=== PATIENT | female | born 2000 | race Caucasian/White ===

== ENCOUNTER 2023-08-23 03:31 | Emergency (ER) | payer OTHER, SELFPAY ==
[2023-08-23 03:34] VITALS: BP 136/86; PULSE 90; RESP 16; TEMP 36.4; O2SAT 98; BMI 42.9
--- NOTE | 2023-08-23 03:41 | XR_ITS ---
[facility] [place] [id number] Patient Name: GAY BECERRIL MRN: [id number] date: 2000 Sex: F Assigned Patient Location: ER Current Patient Location: ED.MAIN Accession/Order Number: [id number] Exam Date: 08/23/2023 03:48 Report Date: 08/23/2023 04:12 At the request of: IRENE MARKER Procedure: XR hand LT min 3V EXAM: XR hand LT min 3V HISTORY: Left hand injury. COMPARISON: None. TECHNIQUE: PA, oblique and lateral views of the left hand performed. FINDINGS: There is less than 0.2 cm ulnar minus variance. The bone mineralization is within normal limits. There is no fracture. The joint spaces are maintained. There are no significant degenerative/arthritic changes. There is no soft tissue abnormality. XR/XR hand LT min 3V IMPRESSION: There is no acute process. There is no fracture. Less than 0.2 cm ulnar minus variance. Electronically authenticated by: ISSA METCALF Date: 08/23/2023 04:12
--- NOTE | 2023-08-23 03:42 | ED.UPPEXIN1 ---
HPI - Extremity Injury (Upper) General Chief Complaint: Extremity Injury, Upper Stated Complaint: LT HAND INJURY/BWC Time Seen by Provider: 08/23/23 03:41 Source: patient Mode of arrival: walk-in Limitations: no limitations History of Present Illness HPI narrative: This 73-year-old female who is right-hand dominant presents for evaluation of a left hand injury. The patient works at [employer] and accidentally smacked her hand against a piece of molding while pulling a part out of another piece of mold. She complains of pain at the left 5th metacarpal. There is no wrist, forearm, elbow or shoulder pain. There is no numbness or tingling. There is no laceration or abrasion. Related Data Home Medications Medication Instructions Recorded Confirmed No Known Home Medications 08/23/23 08/23/23 Allergies Allergy/AdvReac Type Severity Reaction Status Date / Time No Known Drug Allergies Allergy Verified 08/23/23 03:38 Review of Systems ROS Status of ROS 10 or more systems reviewed and unremarkable except as noted in history and below PFSH [facility] Social History Smoking status: Never smoker Exam Narrative Exam Narrative: Nurses note and vital signs reviewed and patient is not hypoxic. General: Overweight adult female, no distress noted, left hand is on an ice pack GCS 15 Skin: Warm, dry, no pallor noted. There is no rash noted. Head: Normocephalic, atraumatic Eye: Normal conjunctiva, no drainage, EOMI. PERRL Cardiovascular: Regular Rate and Rhythm Respiratory: Patient is in no distress, no accessory muscle use, lungs are clear to auscultation, no wheezing, rales or rhonchi Musculoskeletal: Tenderness to left 5ht metatarsal, no ecchymosis, bony deformity, abrasion or laceration noted, pt is able to move all fingers, able to approximate thumb and all fingers, pulses are brisk, capillary refill is less than 2 seconds. Neurological: A&O x4, normal speech Psychiatric: Cooperative Constitutional Vital Signs, click to edit/add: Last Vital Signs Temp 97.5 F L 08/23/23 03:34 Pulse 90 08/23/23 03:34 Resp 16 08/23/23 03:34 BP 136/86 08/23/23 03:34 Pulse Ox 98 08/23/23 03:34 O2 Del Method Room Air 08/23/23 03:34 Course Vital Signs Vital signs: Vital Signs Temperature 97.5 F L 08/23/23 03:34 Pulse Rate 90 08/23/23 03:34 Respiratory Rate 16 08/23/23 03:34 Blood Pressure 136/86 08/23/23 03:34 Pulse Oximetry 98 08/23/23 03:34 Oxygen Delivery Method Room Air 08/23/23 03:34 Temperature 97.5 F L 08/23/23 03:34 Pulse Rate 90 08/23/23 03:34 Respiratory Rate 16 08/23/23 03:34 Blood Pressure 136/86 08/23/23 03:34 Pulse Oximetry 98 08/23/23 03:34 Oxygen Delivery Method Room Air 08/23/23 03:34 MDM - Extremity Injury (Upper) MDM Narrative Medical decision making narrative: This 23-year-old female who is right-hand dominant presents for evaluation of a left hand injury. The patient was pulling a stuck part out of a piece of molding when her hand was propelled forward and struck another piece of molding. She presents complaining of pain in the left 5th metacarpal. She is neurovascular intact. She is able to approximate thumb and all fingers. There is mild tenderness at the 5th metacarpal but no notable ecchymosis, swelling bony deformity or laceration or abrasion. X-ray of the hand is negative for acute findings. She was placed in an Anders wrap by myself and medicated with 6 mg of ibuprofen. She was discharged home to follow up with outpatient Workmen's Comp. Discharge Plan Discharge Chief Complaint: Extremity Injury, Upper Clinical Impression: Contusion of hand, left Time of Disposition Decision: 04:03 Condition: Good Prescriptions / Home Meds: No Action No Known Home Medications Instructions: Contusion in Adults (ED) Additional Instructions: Follow-up with workman's comp in 3-5 days as needed Stand Alone Forms: Portal Instructions Referrals: Physician,Non-Staff, MD [Primary Care Provider] - 1 week
[2023-08-23] MEDS: IBUPROFEN 600 MG TABLET PO (04:04)
== END 2023-08-23 04:30 | disposition home or self-care (01) ==
PROVIDERS: Emergency Provider Emergency Medicine
DX: S60.222A Contusion of left hand, initial encounter (principal); W22.8XXA Striking against or struck by other objects, initial encounter
CPT/HCPCS: 73130; 99283

== ENCOUNTER 2023-09-09 01:18 | Emergency (ER) | payer OTHER, SELFPAY ==
[2023-09-09 01:18] VITALS: BP 129/88; PULSE 86; RESP 16; TEMP 36.8; O2SAT 100; BMI 42.9
--- NOTE | 2023-09-09 01:25 | ED.ABDPAIN1 ---
HPI - Abdominal Pain General Chief Complaint: Abdominal Pain Stated Complaint: PAIN Time Seen by Provider: 09/09/23 01:20 Source: patient Mode of arrival: ambulance Limitations: no limitations History of Present Illness HPI narrative: patient presents complaining of right sided abdominal pain. states she has experienced similar pain on a couple of occasions over the past 2-3 weeks. Seen once by her PCP and once at [facility]. states pain started again tonight about 2 hours ago and she vomited once. States it remains unclear what is the cause of her pain. No fever. 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 (ICD-10) Social History Smoking status: Never smoker Exam Constitutional Vital Signs, click to edit/add: Last Vital Signs Temp 98.3 F 09/09/23 01:18 Pulse 86 09/09/23 01:18 Resp 16 09/09/23 01:18 BP 129/88 09/09/23 01:18 Pulse Ox 100 09/09/23 01:18 O2 Del Method Room Air 09/09/23 01:18 Common normals: no apparent distress, oriented x3, no limitations, healthy appearing, alert and well nourished Eye Common normals: EOMs intact bilaterally and conjunctivae normal Respiratory Common normals: normal respiratory effort, no retractions, no use of accessory muscles and clear to auscultation bilaterally Cardio Common normals: regular rate, regular rhythm, S1 normal heart sound and S2 normal heart sound GI Common normals: Normal to inspection, nondistended, normoactive bowel sounds present and soft to palpation Other: mild tenderness right mid abdomen . No guarding Extremity Common normals: normal to inspection and full ROM Neuro Common normals: oriented x3, CN's II-XII intact bilaterally, moves all extremities, no focal motor deficits and no sensory deficits noted Psych Appearance: grossly normal Course Vital Signs Vital signs: Vital Signs Temperature 98.3 F 09/09/23 01:18 Pulse Rate 86 09/09/23 01:18 Respiratory Rate 16 09/09/23 01:18 Blood Pressure 129/88 09/09/23 01:18 Pulse Oximetry 100 09/09/23 01:18 Oxygen Delivery Method Room Air 09/09/23 01:18 Temperature 98.3 F 09/09/23 01:18 Pulse Rate 86 09/09/23 01:18 Respiratory Rate 16 09/09/23 01:18 Blood Pressure 129/88 09/09/23 01:18 Pulse Oximetry 100 09/09/23 01:18 Oxygen Delivery Method Room Air 09/09/23 01:18 MDM - Abdominal Pain MDM Narrative Medical decision making narrative: patient presents with abdominal pain. mild tenderness. Seen at [facility] 08/03/23 for the same and CT abdomen neg. workup here neg. Patient is now feeling better and would like to go home. Discharged to follow up with her doctor Lab Data Labs: Lab Results 09/09/23 Range/Units 01:41 WBC 10.1 (4.0-11.0) 10^3/uL RBC 4.59 (4.20-5.40) 10^6/uL Hgb 13.6 (12.0-16.0) g/dL Hct 42.2 (36.0-48.0) % MCV 91.9 (81.0-99.0) fL MCH 29.6 (26.7-34.0) pg MCHC 32.2 (29.9-35.2) g/dL RDW 12.3 (11.0-15.0) % Plt Count 412 (150-450) 10^3/uL MPV 8.9 L (9.5-13.5) fL Neut % (Auto) 61.7 (43.0-75.0) % Lymph % (Auto) 31.1 (20.5-60.0) % Island % (Auto) 5.5 (1.7-12.0) % Eos % (Auto) 0.7 L (0.9-7.0) % Baso % (Auto) 0.5 (0.2-2.0) % Neut # (Auto) 6.2 (1.4-6.5) 10^3/uL Lymph # (Auto) 3.1 (1.2-3.8) 10^3/uL Island # (Auto) 0.6 (0.3-0.8) 10^3/uL Eos # (Auto) 0.1 (0.0-0.7) 10^3/uL Baso # (Auto) 0.1 (0.0-0.1) 10^3/uL Abs Immat Gran (auto) 0.05 H (0.00-0.03) 10^3/uL Imm/Tot Granulo (auto) 0.5 (0.0-0.5) % Discharge Plan Discharge Chief Complaint: Abdominal Pain Clinical Impression: Abdominal pain Patient Disposition: Home, Self-Care Prescriptions / Home Meds: No Action No Known Home Medications Instructions: Abdominal Pain (ED) Stand Alone Forms: Portal Instructions Referrals: Physician,Non-Staff, MD [Primary Care Provider] - 1 week
--- NOTE | 2023-09-09 01:29 | XR_ITS ---
The [address] [address] Patient Name: GAY BECERRIL MRN: [id number] date: 2000 Sex: F Assigned Patient Location: ER Current Patient Location: ER Accession/Order Number: [id number] Exam Date: 09/09/2023 01:45 Report Date: 09/09/2023 02:39 At the request of: BEVERLY CLEMENS Procedure: XR abdomen min 2V EXAM: XR abdomen min 2V HISTORY: abdominal pain COMPARISON: None. TECHNIQUE: 2 views of the abdomen were obtained. FINDINGS: There is a nonspecific bowel gas pattern without evidence of bowel obstruction. A supine view is suboptimal for evaluation of intraperitoneal free air though none is seen. No acute osseous abnormality is seen. The imaged lung bases are clear. XR/XR abdomen min 2V IMPRESSION: 1. Nonspecific bowel gas pattern without evidence of bowel obstruction. Electronically authenticated by: Daquan RUSSELL Date: 09/09/2023 02:39
[2023-09-09 01:50] LABS: Red Blood Count 4.59 10^6/uL (4.20-5.40); White Blood Count 10.1 10^3/uL (4.0-11.0)
[2023-09-09 01:51] LABS: Hematocrit 42.2 % (36.0-48.0); Hemoglobin 13.6 g/dL (12.0-16.0); Mean Corpuscular HGB Conc 32.2 g/dL (29.9-35.2); Mean Corpuscular Hemoglobin 29.6 pg (26.7-34.0); Mean Corpuscular Volume 91.9 fL (81.0-99.0); Mean Platelet Volume 8.9 fL (9.5-13.5); Platelet Count 412 10^3/uL (150-450); Red Cell Distribution Width 12.3 % (11.0-15.0)
[2023-09-09 01:52] LABS: Basophils Percent Auto 0.5 % (0.2-2.0); Eosinophils Percent Auto 0.7 % (0.9-7.0); Immature Granulocytes Pct Auto 0.5 % (0.0-0.5); Lymphocytes Percent Auto 31.1 % (20.5-60.0); Monocytes Percent Auto 5.5 % (1.7-12.0); Neutrophils Percent Auto 61.7 % (43.0-75.0)
[2023-09-09 01:53] LABS: Basophils Absolute Auto 0.1 10^3/uL (0.0-0.1); Eosinophils Absolute Auto 0.1 10^3/uL (0.0-0.7); Immature Granulocytes Abs Auto 0.05 10^3/uL (0.00-0.03); Lymphocytes Absolute Auto 3.1 10^3/uL (1.2-3.8); Monocytes Absolute Auto 0.6 10^3/uL (0.3-0.8); Neutrophils Absolute Auto 6.2 10^3/uL (1.4-6.5)
[2023-09-09] MEDS: 0.9 % SODIUM CHLORIDE 1,000 ML 999 ML IV (02:25)
[2023-09-09] MEDS: KETOROLAC TROMETHAMINE 30 MG/ML VIAL IM (02:26)
[2023-09-09] MEDS: ONDANSETRON PF 4 MG/2 ML VIAL IV (02:27)
[2023-09-09 03:41] VITALS: BP 119/82; PULSE 76; RESP 166; TEMP 36.9; O2SAT 99
[2023-09-09 04:56] LABS: Lactate/Lactic Acid 1.9 mmol/L (0.4-2.0)
[2023-09-09 04:57] LABS: Anion Gap 14.4; BUN Creatinine Ratio 9.7; Bilirubin Total 0.2 mg/dL (0.2-1.0); Calcium 8.8 mg/dL (8.5-10.1); Carbon Dioxide 23.3 mmol/L (21.0-32.0); Chloride 107 mmol/L (98-107); Estimated GFR (African America >60 (>=60); Estimated GFR (Non-African Ame >60 (>=60); Glucose 112 mg/dL (74-106); Potassium 3.7 mmol/L (3.5-5.1); Sodium 141 mmol/L (136-145)
[2023-09-09 04:58] LABS: Alanine Aminotransferase 28 U/L (14-59); Albumin Level 3.5 g/dL (3.4-5.0); Alkaline Phosphatase 97 U/L (46-116); Aspartate Amino Transferase 13 U/L (15-37); Globulin 3.6 g/dL; Total Protein 7.1 g/dL (6.4-8.2)
== END 2023-09-09 04:54 | disposition home or self-care (01) ==
PROVIDERS: Emergency Provider Internal Medicine
DX: R10.9 Unspecified abdominal pain (principal)
CPT/HCPCS: 36415; 74019; 80053; 83605; 83690; 85025; 96372; 96374; 99285